=== PATIENT | female | born 1980 | race Caucasian/White ===

== ENCOUNTER 2017-05-23 08:30 | Outpatient (RCR) | payer OTHER, SELFPAY ==
--- NOTE | 2017-05-02 11:20 | HP.PTEVAL_ITS ---
Patient's Visit Information GERMAN ROBBINS is a 36 year old F referred to Physical Therapy by LUPILLO Govea with a diagnosis of Left Tarsal Tunnel. Date of Evaluation: 05/02/17 Physical Therapist: Lashae Fletcher - Visit Plan Frequency: 2x /Week Duration: 4 Weeks Plan: Progress to shoe as tolerated. Left Tarsal Tunnel Release 04/01/17. - Subjective Subjective: Left Tarsal Tunnel 04/01/[address] Dunham- Was having really bad heel pain- started out as plantar fascitits (boot, orthotics, injections). NWB for 1 week used axillary crutches then was TTWB for 2 weeks then put into a walking boot. If she is walking long distances she is still using her crutches. Actual heel hurts- started this morning- last 3 toes are still numb. Does walk at home on the carpet without her boot on. Heel pain started this morning which is a little different- feels a ball at the arch of her foot with a ball. Worst: 09/18 Agg: being up on it. Describes pain as burning- normally dull and achy. Eases: ice, getting off it. Once she gets off it takes about 60 min to go away. Best: 06/18. Sleep: not disturbed- does not sleep in her boot. 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 No injuries. No radiating pain. PMHx: anxiety, Meds: lyrica, mentonex. MRI/X-ray/EMG before surgery- no images since surgery. fully I at this time driving, dressing, bathing. - Objective Posture: FH,RS. Gait: antalgic- decreased stance on the left LE- does have CAM walker on- poor heel/toe pattern. Balance: WS but unable to SLS. HR/TR: able seated but not in full WB. Palpation: tender along medial tunnel behind malleolus. Incision: healing well- one tiny area where stitch looks to be pulling through, very senstive to touch and increased scar tissue. ROM: DF: 5 degrees from neutral PF: 40 degrees, Inv: 30 degrees, Ever: 20 degrees. Strength: 4/5 throughout available range - Goals Goal 1:: Patient will be I with HEP and progression Goal Time Frame: 4-6 Weeks Goal 2:: Patient will ambulate >300 feet with a normalized gait pattern and shoe. Goal Time Frame: 4-6 Weeks Goal 3:: Patient will SLS for 30 sec without LOB Goal Time Frame: 4-6 Weeks Goal 4:: Patient will demo full ROM of the ankle Goal Time Frame: 4-6 Weeks - Rehabilitation Potential Physical Therapy Diagnosis: Patient presents with hypomobility- she has decreased ROM, strength and muscular endurnace s/p surgery leading to abnormal gait and inability to perform ADL's Rehabilitation Potential: Good - Anticipated Interventions Patient/Client Instruction: Educate patient on: Benefits of Fitness Program For the Purpose of:: To improve ability to perform ADL's Therapeutic Exercise to Include: Strength training, Endurance training, Balance training, Agility training, Body mechanics, Postural training, Flexibilty training, Passive ROM, Active ROM, Dynamic Lumbar Stabilization For the Purpose of:: To improve muscle performance and motor function Manual Therapy Techniques to Include: Scar massage, Soft tissue mobilization For the Purpose of:: To decrease pain, To increase ROM TENS: Yes Cryotherapy (ice pack, ice massage): Yes Thermo therapy (hot pack): Yes For the Purpose of:: To decrease pain Thank you for the opportunity to evaluate your patient. For Medicare and Medicare HMO plans, please review the plan of care and approve it. It will need to be FAXED BACK to us at [phone] for Medicare purposes. Please let me know if there are questions or concerns regarding this plan of care. Physician Signature: Date:
--- NOTE | 2017-05-23 08:54 | HP.PTDCSUM_ITS ---
HP - PT D/C Summary It has been my pleasure to treat GERMAN ROBBINS under orders from Theresa Goyal, LUPILLO, for the diagnosis of Left Tarsal Tunnel for a total of 5 visit(s) . Discharge Date: Please see the following information for a summary of their discharge status. - Subjective Subjective: Patient reports that she is 80% better. She went to work on Tuesday and was not painful just sore. She is not having any pain anymore and is happy with progress. Sees the MD today. - Pain L medial ankle Pain Intensity (Out of 10): 3 - Overall Improvement % Improvement: 80 - Objective Objective/Function: Posture: good throughout. Gait: no deviation noted. Stairs : asc/desc 8 recip with no HR. HR/Tr: able without pain. ROM: WNL. Strength : 5/5. Balance: 20 sec then LOB - Goals Goal 1:: Patient will be I with HEP and progression Goal Progress: Goal Met Goal 2:: Patient will ambulate >300 feet with a normalized gait pattern and shoe. Goal Progress: Goal Met Goal 3:: Patient will SLS for 30 sec without LOB Goal Progress: Progressing Goal 4:: Patient will demo full ROM of the ankle Goal Progress: Goal Met - Plan Plan: Discharge to I HEP - D/C Information If there are questions or concerns regarding this patient's physical therapy, please feel free to call me at [phone]. Thank you for the referral of this patient. Sincerely, Lashae Fletcher
== END 2017-05-23 09:00 | disposition home or self-care (01) ==
LOC: PT 08:30
PROVIDERS: Family Provider Internal Medicine; PCP Internal Medicine; Visit Provider Podiatrist
DX: Z98.890 Other specified postprocedural states (principal)
CPT/HCPCS: 97110; 97140; 97161; 97530

== ENCOUNTER → 2017-11-18 10:16 | Outpatient (CLI) | payer OTHER, SELFPAY ==
--- NOTE | 2017-11-18 10:22 | RAD_ITS ---
STUDY: X-RAY - LEFT KNEE REASON FOR EXAM: Female, 37 years old. Pain TECHNIQUE: Four view(s) of the knee were obtained. COMPARISON: None. FINDINGS: The distal femur is unremarkable. 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 There is moderate narrowing of the medial femorotibial compartment. There is mild narrowing of the lateral femorotibial compartment. Normal patellofemoral articulation. There is no fullness above the patella. The soft tissue structures are unremarkable. RAD/Knee 4 or More Views IMPRESSION: There are mild to moderate degenerative changes in the left knee with a medial predominance. Electronically Signed: Elvi Howard MD at 0:24 EDT Tel Direct: [phone], Service support ,
--- NOTE | 2017-11-18 10:22 | RAD_ITS ---
STUDY: X-RAY - RIGHT KNEE REASON FOR EXAM: Female, 37 years old. Pain TECHNIQUE: Four view(s) of the knee were obtained. COMPARISON: None. FINDINGS: The distal femur is unremarkable. The proximal tibia is unremarkable. There is mild narrowing of the medial femorotibial compartment. Normal lateral femorotibial compartment. Normal patellofemoral articulation. There is no fullness above the patella. The soft tissue structures are unremarkable. RAD/Knee 4 or More Views IMPRESSION: There are mild degenerative changes in the medial compartment. Electronically Signed: Elvi Howard MD at 0:22 EDT Tel Direct: [phone], Service support ,
== END ==
PROVIDERS: Visit Provider Internal Medicine Rheumatology
DX: M06.4 Inflammatory polyarthropathy (principal); K58.2 Mixed irritable bowel syndrome; G56.03 Carpal tunnel syndrome, bilateral upper limbs
CPT/HCPCS: 73564

== ENCOUNTER 2018-06-02 05:32 | Day surgery (SDC) | payer OTHER, SELFPAY ==
[2018-05-19 09:52] VITALS: BMI 43.7
[2018-05-26 13:32] LABS: Absolute Lymphocyte Count 2.08 X10^3/ul (0.83-4.51); Basophil# 0.03 X10^3/uL; Basophil% 0.3 % (0-1); Eosinophil# 0.07 X10^3/uL; Eosinophils% 0.8 % (0-5); Hematocrit 41.4 % (37-47); Hemoglobin 13.4 g/dl (12.0-15.0); Lymphocyte # 2.08 X10^3/ul (4.0); Lymphocyte % 23.9 % (19-41); Mean Corp Hgb Conc 32.4 g/gl (32-36); Mean Corpuscular Hgb 27.5 pg (27.0-32.0); Mean Platelet Vol. 9.4 fl (6.2-12.0); Monocyte# 0.56 X10^3/uL; Monocyte% 6.4 % (0-10); Neutrophil # 5.95 X10^3/uL (2.7-7.7); Neutrophil % 68.5 % (47-70); Platelet Count 334 K/mm3 (150-450); RBC Distribution Width CV 13.9 % (11.6-14.6); RBC Distribution Width SD 42.2 fl (35.1-43.9); Red Blood Count 4.87 M/mm3 (4.2-5.4); White Blood Count 8.7 K/mm3 (4.4-11.0)
[2018-05-26 13:36] LABS: POSITIVE COUNT NO; POSITIVE DIFFERENTIAL NO; POSITIVE MORPHOLOGY NO
[2018-05-26 14:05] LABS: ALB/GLOB Ratio 0.9 RATIO (0.9-2.4); AST(SGOT) 23 U/L (15-37); Alanine Aminotransfer ALT/SGPT 42 U/L (13-56); Albumin, Serum 4.1 g/dL (3.2-5.0); Alkaline Phosphatase 134 U/L (45-117); Anion Gap 9 (5-15); BUN 15 mg/dL (7-18); BUN/Creat Ratio 18.2 RATIO (10-20); Calcium,Total 9.8 mg/dL (8.5-10.1); Chloride 104 mmol/L (98-107); Creatinine, Serum 0.82 mg/dL (0.55-1.02); EST Glomerular Filtration Rate 83 mL/min (>60); Est Glom Filt Rate - Afr Amer 100 mL/min (>60); Globulin 4.4 g/dL (2.2-4.2); Glucose 107 mg/dL (74-106); Potassium 3.9 mmol/L (3.5-5.1); Protein, Total 8.5 g/dL (6.4-8.2); Sodium Level 139 mmol/L (136-145)
[2018-06-02] VITALS (7 sets, daily range): BP systolic 98–138; BP diastolic 64–86; PULSE 71–81; RESP 15–16; TEMP 36.1–36.6; O2SAT 92–99; BMI 44.5
[2018-06-02] MEDS: Bupivacaine 0.5% PF 10 ML VIAL (07:40)
--- NOTE | 2018-06-02 09:38 | DCINST_ITS ---
Discharge Diet: No Restrictions Discharge Activity: Use Crutches Ice area for (Minutes): 15 - apply to back of knee only Weight Bearing Status: No weight bearing Keep extremity elevated above heart level: Right Leg Call your doctor if your incision/area has: Continuous Slow Oozing, Sudden Increased Bleeding, Increased Pain/ Swelling, Increased Redness, Foul Smelling Discharge, Swelling at the incision site Call your doctor if you observe: Fever of 101 or Higher, Numbness or Tingling, Calf discomfort, Uncontrolled pain Cleanse incision/area with: Keep Dressing Clean & Dry Allergies/Adverse Reactions: Allergies Sulfa (Sulfonamide Antibiotics) Allergy (Verified 05/26/18 11:30) Rash Medications to take at Discharge Sertraline HCl [Zoloft] 100 mg PO DAILY 04/07/14 nabumetone 750 mg tablet 750 mg PO BID 05/19/18 Acetaminophen [Tylenol] 650 mg PO PRN PRN 05/26/18 Primary Care Physician: Chelsy Maldonado MD [Primary Care Provider] - Test Results: Test results from this visit will be discussed in further detail at your follow- up appointment, if applicable. Please Follow Up With: Theresa Goyal DPM When: [facility]; call [phone] sooner if questions Proposed Discharge Date: 06/02/18
--- NOTE | 2018-06-02 09:57 | OP.PCM_ITS ---
Problem List (1) Tarsal tunnel syndrome, right lower limb Status: Chronic (2) Plantar fasciitis of right foot Status: Chronic (3) Right foot pain Status: Chronic Report of Operation Date of Procedure: 06/02/18 Pre-Operative Diagnosis: Right tarsal tunnel syndrome. Right plantar fasciitis chronic Post-Operative Diagnosis: Right tarsal tunnel syndrome. Right plantar fasciitis chronic Surgery/Procedure Performed:: Right tarsal tunnel external neurolysis including branches. Right open plantar fasciotomy Description of Surgical Findings:: Hemostasis: Anatomic dissection, no tourniquet utilized Materials: 2-0 and 3-0 Vicryl, 4-0 nylon Findings: Hemostasis controlled, tibial nerve with 3 main branches well mobilized after tarsal tunnel release including fibro-osseous tunnels. See detailed operation report The patient tolerated the procedure and anesthesia well. She was transported to the PACU vital signs stable vascular status intact to the right lower extremity. She will be discharged home upon continued stability in all of her postoperative orders were entered electronically. Type of Anesthesia:: General, Local - Preoperative: 1:1 mixture of 1% lidocaine plain 0.5% Marcaine plain administered in high tibial nerve block fashion, 14 cc Postoperative: 1-1 mixture of 1% lidocaine plain 0.5% Marcaine plain administered tibial nerve block and local infiltrative manner to right lower extremity at surgical sites, 14 cc Specimen's removed: None Estimated Blood Loss (mL): < 50 mL Description of Procedure: Indications: This 37-year-old female without significant past medical history continues to have right heel pain with associated parasthesias. This has been chronic in nature and the onset is over 1 year with progressive worsening. Clinically, she has irritation and palpation over the medial calcaneal nerve branch and to the medial plantar instep. Her x-rays are negative for spurs, cysts, or fractures. Her EMG studies were negative for radiculopathy and did not identify other specific abnormalities to the tibial nerve. She did have partial relief with a diagnostic nerve block to the tibial nerve and her clinical presentation is consistent with tarsal tunnel syndrome and plantar fasciitis. She has failed conservative care and elects to proceed with surgical intervention at this time. The preoperative indications, planned procedure, possible benefits, risks, and anticipated healing time management were discussed in detail with the patient. She understands and elects to proceed with surgery at this time. She understands that complications may involve but are not limited to the following: continued pain, swelling, scarring, need for revisional surgery, re-entrapment of the nerve, loss of sensation, loss of limb, function, life, allergic reaction, and or blood clot. Informed surgical consent and surgical limb were signed. I answered all her questions. Her preoperative history and physical was reviewed from her primary care physician, Dr. Maldonado, and clearance was provided. Her preoperative diagnostic data was also reviewed in detail. Procedure in detail: The patient was transported to the operating room via cart and placed on the operating room table in supine position. Final verification of patient, surgery, and limb designation was performed via the timeout procedure. A well- padded right thigh tourniquet was placed, however this was not utilized. General anesthesia was initiated by the anesthesia team. The right lower extremity was prepped and draped in the usual aseptic manner. A local anesthetic was administered dulce tibial nerve proximal to the anticipated surgical dissection site. Surgery proceeded as a following: Attention was first directed to the medial aspect of the right ankle in which a 5 cm linear incision was made approximately 1.5 cm posterior to the medial malleolus extending to the anterior fat pad of the heel through the skin. Blunt dissection was next performed down until the flexor retinaculum was identified. Care was taken to identify and protect all neurovascular bundles at this point and throughout the remainder of surgery. A small puncture was made through the flexor retinaculum and this was incised to release the entrapped neurovascular bundle. This release extended above the medial malleolus and further distal to where the nerve began to branch and additionally to the level of the abductor hallucis muscle belly. Vessel loupes were used to separate the nerve from the adjacent neurovascular bundle and any associated adhesions. No touch technique was utilized throughout the entire procedure to avoid further nerve irritation or injury. The tibial nerve was identified and additionally the medial calcaneal nerve branch, lateral plantar nerve branch, and medial plantar nerve branches were identified and freed from adherent adjacent soft tissue structures. It is noted that the septum in which medial and lateral plantar nerves were diving deep into the foot were freed and not entrapped in the site. The medial calcaneus nerve branch was entrapped and restricted while that was diving deep to the medial aspect of the calcaneus and correlates in alignment with her main clinical pain site. Therefore, the septum /fibrous tunnel was carefully loosened and incised resulting in a smooth gliding nerve caodaism. There were some varicosities on top of the medial and lateral plantar nerve branches and further at the fascial layer that met the abductor hallucis muscle belly were noted, and these were moderate in nature. Several of the tortuous branches were ligated with electrocauterization. The overlying vessels were carefully freed from the underlying nerve branches and nonrestrictive nerve motion was noted upon passive range of motion. There was no additional soft tissue mass or proximal entrapment identified. Care was taken to release the fibrous brands to each branch. The epineurium appeared to be intact under loupe magnification visualization. Saline irrigation was performed. One mL of dexamethasone was used to bathe the nerve and its branches to reduce local inflammation. Next, attention was directed approximately 1.5 cm distal to the plantar w eightbearing surface of the medial heel. A horizontal 1.5 cm linear incision was made through the skin remaining parallel to the resting skin tension lines. Next, blunt dissection was performed through the adipose tissue and the plantar fascial band was directly visualized. A 15 blade was utilized to release the plantar fascia band including the medial aspect and the entire central band. The windlass mechanism was re-created and decreased tension was visualized and palpated. Additional tenotomy scissor was used to ensure the medial slips extending into the abductor hallucis muscle belly sheath were thoroughly released as well. Minimal electrocauterization was utilized to control hemostasis for a superficial vein in this region. The wound was irrigated with normal saline. No pulsatile bleeding was noted and capillary fill time was brisk to all digits of the surgical limb. Deep closure was performed with 2-0 and 3-0 Vicryl, and the flexor retinaculum was not repaired. The skin incision sites were reapproximated with 4-0 nylon utilizing simple and horizontal mattress techniques. A postoperative injection was administered as noted above. The postoperative dressing consisting of Adaptic soaked in Betadine, gauze, abdominal pad, and Kerlix were applied. Additionally, a well-padded posterior mold was applied with the foot in a rectus position for further protection. After procedure: The patient tolerated the procedure and anesthesia well. She was transported to the PACU vital signs stable and vascular status intact to the right lower extremity. She was advised to keep her dressing, clean, dry and intact with the splint in place until follow up next week. She was advised to ice and elevate for pain and inflammation management. She was provided with a postoperative pain medication prescription (percocet), and advised on safe and proper use. She was advised to remain nonweightbearing and use crutches or knee roller for assistance. She was advised to call sooner if she has any questions or concerns. She will be progressed to an early mobilization home program to prevent re entrapment or additional scarring. The anticipated healing time and success ra te of this procedure were discussed in full in the preoperative setting. She will also be started on a Lyrica and Metanx program to facilitate nerve healing and relief as part of her post operative treatment course. All orders were entered electronically. She will be discharged home today. Theresa Goyal DPM, [facility] [phone] - Complications None - Admit VTE Documentation VTE Present on Admission: No VTE Mechan Device Prophylaxis: SCD's VTE Pharm Prophylaxis ordered?: No Reason prophylaxis not ordered:: Treatment Not Indicated
[2018-06-02] MEDS: HYDROcodone Bitartrate/Apap 5/325 Tablet PO (10:34)
== END 2018-06-02 12:20 | disposition home or self-care (01) ==
LOC: SDC 05:32 → AC 05:32
PROVIDERS: Family Provider Internal Medicine; PCP Internal Medicine; Referring Provider Podiatrist; Visit Provider Podiatrist
PROC: (CPT 28035; principal; 2018-06-02 07:15)
PROC: (CPT 28008; 2018-06-02 07:15)
DX: G57.51 Tarsal tunnel syndrome, right lower limb (principal); M72.2 Plantar fascial fibromatosis; F41.9 Anxiety disorder, unspecified; F32.9 Major depressive disorder, single episode, unspecified
CPT/HCPCS: 28008; 28035; 36415; 80053; 85025; 93005; J7120; J2405

== ENCOUNTER 2018-07-05 08:54 | Outpatient (RCR) | payer OTHER, SELFPAY ==
[2018-06-02 06:04] VITALS: BMI 44.5
--- NOTE | 2018-07-05 09:32 | HP.PTEVAL_ITS ---
Patient's Visit Information GERMAN ROBBINS is a 37 year old F referred to Physical Therapy by Theresa Goyal DPM with a diagnosis of Right Tarsal Tunnel and Plantarfasciotomy. Date of Evaluation: 07/05/18 Physical Therapist: Lashae Fletcher DPT - Visit Plan Frequency: 1x/Week Duration: 1 Week Plan: Educated today on shoes, progression to shoe, scar management and HEP. Patient to do independent HEP- call or email with questions or concerns. Will keep chart open for 4 weeks- if no questions or concerns will d/c at this time. - Subjective Findings: 06/02/[address] Goyal right tarsal tunnel and plantar fasciotomy. Patient reports this one seems easier than the left she had done. She has transitioned to a shoe for about a total of 2 hours. Worst: 3/10 Agg: being on it. Eases: sitting Best: 0/10 most of the time. Feels like gravel on the bottom of the foot. No other pains. Does have small amount of hip pain but nothing serious. Slight numbness to the heel on the bottom of the foot. 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 Worked out did a light impact video yesterday- in shoes. Fully I prior to surgery and hopes to go back. Is currently driving. No pain meds at this time. Sleep: not disturbed. Does have orthotics but she can't wear them. Always wears [employer] shoes and inserts from the office. PMhx/meds: list scanned in chart. - Objective Posture: FH, RS- can correct with verbal cues. Gait: CAM walker- decreased stance on the right LE with poor heel/toe. Without CAM walker- patient ambulates with increased supination and decreased heel strike. Heel Raise: full ROM but increased flare in of heel- given VC's can perform correctly but feels different. Toe Raise: full ROM but reports discomfort on the heel. Palpation: tender along incision. Observation: increased scar tissue along incision. SLS: Full WS but unable to SLS. ROM: DF: 0 degrees, PF:60 degrees, Inv: 40 degrees, Ever: 20 degrees. Gastroc: severe restriction, HS: moderate restriction. Strength: 4+/5 throughout ankle and knee - Goals Goal 1:: Patient will be I with HEP and progression Goal Time Frame: 4-6 Weeks - Rehabilitation Potential Physical Therapy Diagnosis: Patient presents with hypomobility- she has decreased ROM and muscular endurance leading to abnormal gait and decreased participation with ADL's. Rehabilitation Potential: Excellent - Anticipated Interventions Thank you for the opportunity to evaluate your patient. For Medicare and Medicare HMO plans, please review the plan of care and approve it. It will need to be FAXED BACK to us at [phone] for Medicare purposes. For Medicare only, by signing this I certify the plan of care. Please let me know if there are questions or concerns regarding this plan of care. Physician Si gnature: Date:
--- NOTE | 2018-08-10 10:42 | HP.PT.NRP ---
HP - Discharge Summary (1) - Patient Information GERMAN ROBBINS was seen in my office for initial evaluation on 07/05/18. The following Plan of Care was established for this patient: Initial Frequency: 1x/Week Initial Duration: 1 Week This patient was last seen in our office . Pertinent comments regarding their Physical therapy will appear below: Patient has not attended physical therapy is over 30 days- appropriate to be d/c from PT and return to MD as needed for further evaluation. At this point I will be discontinuing this patient from physical therapy. I would be happy to see this patient again in the future if found appropriate by the physician. Thank you! RUTHIE MoonT
== END 2018-07-05 19:00 | disposition home or self-care (01) ==
LOC: PT 08:54
PROVIDERS: Family Provider Internal Medicine; PCP Internal Medicine; Referring Provider Podiatrist; Visit Provider Podiatrist
DX: Z98.890 Other specified postprocedural states (principal)
CPT/HCPCS: 97161

== ENCOUNTER → 2020-06-26 13:38 | Outpatient (CLI) | payer OTHER, SELFPAY ==
[2018-06-02 06:04] VITALS: BMI 44.5
--- NOTE | 2020-06-26 13:41 | CT_ITS ---
STUDY: CT FACIAL BONES WITHOUT CONTRAST REASON FOR EXAM: Female, 39 years old. SINUSITIS RADIATION DOSAGE (If Supplied By Facility): CTDIvol = ( 28.14 ) mGy, DLP = ( 714.53 ) mGycm TECHNIQUE: The patient was scanned in a multi detector CT scanner. Sagittal and coronal images were reconstructed. Individualized dose optimization techniques were used for this CT. COMPARISON: None. FINDINGS: Normal soft tissue structures. Normal orbital hernandez and orbital contents. Normal nasal bones and anterior nasal spine. Normal facial bones. There is no demonstrated fracture. There is hypertrophy of the inferior turbinate in the left nasal fossa. Nasal septal deviation towards the left side of the midline. CT/Sinus/Facial Bone IMPRESSION: Nasal septal deviation towards the left side of the midline with hypertrophy of the left inferior turbinate. Electronically Signed: Luis Connelly MD at 15:22 EDT , Service support ,
== END ==
PROVIDERS: PCP Internal Medicine; Referring Provider Otolaryngology; Visit Provider Otolaryngology
DX: J32.8 Other chronic sinusitis (principal)
CPT/HCPCS: 70486

== ENCOUNTER 2021-02-16 02:04 | Observation (INO) | payer OTHER, SELFPAY ==
[2021-02-16] VITALS (8 sets, daily range): BP systolic 99–140; BP diastolic 44–83; PULSE 60–93; RESP 16–18; TEMP 36.1–36.8; O2SAT 96–100; BMI 27.1; BMI 27.8
[2021-02-16 02:58] LABS: Absolute Lymphocyte Count 1.78 X10^3/uL (0.83-4.51); Basophil# 0.03 X10^3/uL; Basophil% 0.4 % (0-1); Eosinophil# 0.16 X10^3/uL; Eosinophils% 2.1 % (0-5); Hematocrit 39.5 % (37-47); Hemoglobin 12.8 g/dL (12.0-15.0); Lymphocyte # 1.78 X10^3/ul (0.83-4.51); Lymphocyte % 23.1 % (19-41); Mean Corp Hgb Conc 32.4 g/dL (32-36); Mean Corpuscular Hgb 28.3 pg (27.0-32.0); Mean Corpuscular Volume 87.4 fL (81-99); Mean Platelet Vol. 9.7 fl (6.2-12.0); Monocyte# 0.73 X10^3/uL; Monocyte% 9.5 % (0-10); NRBC Flagged by Analyzer 0 % (0-5); Neutrophil # 4.98 X10^3/uL (2.7-7.7); Neutrophil % 64.8 % (47-70); Platelet Count 268 K/mm3 (150-450); RBC Distribution Width SD 41.6 fl (35.1-43.9); Red Blood Count 4.52 M/mm3 (4.2-5.4); White Blood Count 7.7 K/mm3 (4.4-11.0)
[2021-02-16] MEDS: 0.9% Normal Saline 1,000 ML 1000 ML IV (03:03)
[2021-02-16] MEDS: Morphine 4 MG/ML Syringe IV (03:03)
[2021-02-16] MEDS: Mag Hydrox/Al Hydrox/Simeth 30 ML UDC PO (03:04)
[2021-02-16] MEDS: Famotidine 200 MG/20 ML MDV 20 MG in 0.9% Normal Saline (Pres. free 8 ML 300 MG IV (03:04)
[2021-02-16] MEDS: Ondansetron 4 MG/2 ML Vial IV ×2 (03:04→10:05)
[2021-02-16 03:13] LABS: AST(SGOT) 36 U/L (15-37); Alanine Aminotransfer ALT/SGPT 39 U/L (13-56); Albumin, Serum 3.5 g/dL (3.2-5.0); Alkaline Phosphatase 91 U/L (45-117); Anion Gap 5 (5-15); BUN 15 mg/dL (7-18); BUN/Creat Ratio 21.4 RATIO (10-20); Bilirubin, Direct 0.12 mg/dL (0.00-0.30); Calcium,Total 8.8 mg/dL (8.5-10.1); Chloride 107 mmol/L (98-107); EST Glomerular Filtration Rate 99 mL/min (>60); Est Glom Filt Rate - Afr Amer 119 mL/min (>60); Estimated Creatinine Clearance 104.93 ml/min; Globulin 3.8 g/dL (2.2-4.2); Glucose 97 mg/dL (74-106); Lipase 145 U/L (73-393); Potassium 3.9 mmol/L (3.5-5.1); Protein, Total 7.3 g/dL (6.4-8.2); Sodium Level 139 mmol/L (136-145)
--- NOTE | 2021-02-16 03:29 | CT_ITS ---
STUDY: CT ABDOMEN AND PELVIS WITH CONTRAST REASON FOR EXAM: Female, 40 years old. upper abd pain, hx of gastric bypass -- IV PO Contrast RADIATION DOSAGE (If Supplied By Facility): CTDIvol = ( 13.35 ) mGy, DLP = ( 930.46 ) mGycm TECHNIQUE: Transaxial images were obtained from the dome of the diaphragm to the symphysis pubis without oral contrast. Oral and amp; IV Gastrografin and amp; 100mL Isovue-300 was administered. Sagittal and coronal images were reconstructed. Individualized dose optimization techniques were used for this CT. COMPARISON: None. FINDINGS: The visualized lung bases are unremarkable. The visualized portions of the heart are within normal limits. Normal liver. There are surgical clips in the gallbladder fossa consistent with a prior cholecystectomy. Normal spleen. Normal pancreas. Normal bilateral adrenal glands. 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 Right kidney stone measures 5 mm without hydronephrosis. Gastric bypass without evidence of obstruction. Normal small intestine. Normal colon. The appendix is visualized and appears normal. Normal abdominal aorta. Normal inferior vena cava. Normal retroperitoneum. Normal urinary bladder. Normal abdominal wall. Normal osseous structures. CT/Abdomen/Pelvis WITH Contrast IMPRESSION: Enlargement of the renal pelvis bilaterally suggesting bilateral extrarenal pelvis. Right kidney stone measures 5 mm without hydronephrosis. Electronically Signed: Felicia Sotelo MD at 6:19 EST Tel , Service support ,
--- NOTE | 2021-02-16 03:29 | ED.VIS.GI ---
HPI HPI - GI History of Present Illness Chief Complaint: Abd Pain Informant: patient Narrative Narrative: Patient is a 40-year-old female presenting with abdominal pain. Patient states that start about an hour after eating lunch. She notes she ate fried chicken strips. She then developed pain in her right upper quadrant and epigastric region. She states is been significantly worse over the past 4 hours and she describes as a 10 out of 10. She did severe. She has associated nausea but no vomiting. She knows she has not had a bowel movement in 2 days but has been passing gas. Denies any fever or chills. Did try taking Pepto-Bismol with no relief of her symptoms. Patient has had prior Dexter-en-Y gastric bypass, cholecystectomy and a recent hysterectomy in November. She notes she did recently have Covid 19 infection as well as sepsis from UTI after her hysterectomy. Her surgeries have been through [facility]. She denies any urinary symptoms. [facility] Medical History (Updated 02/16/21 @ 08:[address] Haylee Land DO) Hydronephrosis due to ureteral stricture Home Medications sertraline 100 mg PO DAILY 04/07/14 [History Last Taken 10/15/14 21:00] multivitamin 1 tab PO DAILY 02/16/21 [History Last Taken Unknown] Allergy/AdvReac Type Severity Reaction Status Date / Time Sulfa (Sulfonamide Allergy Rash Verified 02/16/21 02:08 Antibiotics) Family History Mother Diabetes Epilepsy Thyroid disorder Father Diabetes Thyroid disorder Alcoholism Celiac disease Early onset Alzheimer's dementia Surgical History H/O dilation and curettage History of cholecystectomy History of tubal ligation Social History Smoking Status: Never smoker second hand exposure: No alcohol intake: never what type of physical activity do you participate in: none ROS ROS ED Constitutional Constitutional ED: Denies chills or fever(s) ENT ENT ED: Denies rhinorrhea or sore throat Cardiovascular Cardiovascular: Denies chest pain Respiratory/Chest Respiratory/Chest: Denies cough or dyspnea Gastrointestinal Gastrointestinal: Reports abdominal pain and nausea; Denies constipation, diarrhea or vomiting Genitourinary Genitourinary ED: Denies dysuria or hematuria Musculoskeletal Musculoskeletal: Denies arthralgias or myalgias Integumentary Denies rash Neurologic Neurologic: Denies headache(s) or weakness EXAM Physical Exam Const Vital Signs: 02/16/21 02:05 02/16/21 04:43 02/16/21 06:00 Temperature 97 F L Temperature Source Temporal Pulse Rate 73 79 93 Respiratory Rate 16 16 18 Blood Pressure 140/83 H 115/67 99/56 L Blood Pressure Mean 102 83 70 Pulse Ox 100 97 99 Oxygen Delivery Method Room Air 02/16/21 08:00 Temperature Temperature Source Pulse Rate 91 Respiratory Rate 16 Blood Pressure 110/44 L Blood Pressure Mean 66 Pulse Ox 96 Oxygen Delivery Method Room Air Positive well nourished and well developed General Appearance ED: well developed HEENT normocephalic and atraumatic Eyes PERRL and EOMs intact bilaterally Neck supple Resp normal respiratory effort and clear to auscultation bilaterally Cardio regular rate, regular rhythm and no murmurs GI Inspection: Negative for abdominal distention Auscultation: hyperactive bowel sounds Palpation: soft and tender epigastric and RUQ; Negative for guarding, rigid or rebound tenderness present Back/Spine no CVA tenderness Neuro moves all extremities Sensorium / Orientation: alert Motor Exam: Negative for general weakness Psych mental status grossly normal and thought process normal Skin Lesions: no lesions Rashes: no rashes MDM MDM MDM Narrative Medical decision making narrative: Patient evaluated for right upper quadrant/epigastric abdominal pain. She has associated nausea but no vomiting. She does feel like she is been slightly constipated but has been passing gas. She has no peritoneal signs on exam. Patient is to given GI cocktail, Pepcid and morphine with no improvement of her pain. She is then redosed with 0.5 mg of IV Dilaudid. She does have temporary improvement of her pain but then it returns. Given her amount of pain I did obtain a CT of the abdomen pelvis. No acute processes seen. She has shown to have a 5 cm nonobstructing kidney stone on the right. Patient states she is aware of that and also knows of her hydronephrosis on the left. Spoke with urology on-call, Dr. Miller, who states that she does not think either of these should be causing her pain. I do highly suspect that she could have some type of gastritis or peptic ulcer disease is causing her pain. I do not suspect any retained stone/choledocholithiasis especially she has a normal lipase, bilirubin, alkaline phosphatase and AST/ALT. Her white blood cell count is normal and have a low suspicion for any acute surgical or infectious process. Patient would like to be admitted for further pain control and evaluation of her pain. I spoke with GI on-call, Dr. Amezquita, who is agreeable to this. Patient is admitted to the medicine service. Lab Data Attestation: I reviewed the patient's lab results. Labs: Laboratory Results - last 24 hr 02/16/21 02/16/21 02/16/21 02:15 02:15 04:40 WBC 7.7 RBC 4.52 Hgb 12.8 Hct 39.5 MCV 87.4 MCH 28.3 MCHC 32.4 RDW Std Deviation 41.6 RDW Coeff of Alyssia 13.0 Plt Count 268 MPV 9.7 Immature Gran % (Auto) 0.100 Neut % (Auto) 64.8 Lymph % (Auto) 23.1 [place] % (Auto) 9.5 Eos % (Auto) 2.1 Baso % (Auto) 0.4 Absolute Neuts (auto) 5.0 Absolute Lymphs (auto) 1.78 Nucleated RBC % 0 Sodium 139 Potassium 3.9 Chloride 107 Carbon Dioxide 27.0 Anion Gap 5 BUN 15 Creatinine 0.70 Estim Creat Clear Calc 104.93 Est GFR (MDRD) Af Amer 119 Est GFR (MDRD) Non-Af 99 BUN/Creatinine Ratio 21.4 H Glucose 97 Calcium 8.8 Total Bilirubin 0.30 Direct Bilirubin 0.12 AST 36 ALT 39 Alkaline Phosphatase 91 Total Protein 7.3 Albumin 3.5 Globulin 3.8 Lipase 145 Urine Color Yellow Urine Clarity Clear Urine pH 7.0 Ur Specific [place] 1.010 Urine Protein Negative Urine Glucose (UA) Normal Urine Ketones Negative Urine Occult Blood Negative Urine Nitrite Negative Urine Bilirubin Negative Urine Urobilinogen Normal Ur Leukocyte Esterase 100 H Urine RBC 0 SEEN Urine WBC 0-5 SEEN Ur Squamous Epith Cells 0-5 SEEN Urine Bacteria 2+ Urine Mucus 0 SEEN Radiography Diagnostic Testing: Clinical Impression(s) from Imaging Studies Abdomen/Pelvis CT 02/16/21 03:29 IMPRESSION: Enlargement of the renal pelvis bilaterally suggesting bilateral extrarenal pelvis. Right kidney stone measures 5 mm without hydronephrosis. Electronically Signed: Felicia Sotelo MD at 6:19 EST Tel , Service support , Discharge Plan Triage Chief Complaint: Abd Pain ED Provider: Haylee Land Dx/Rx/DC Orders Clinical Impression: Intractable epigastric abdominal pain, Nausea Primary Care Provider: Dread Lira Disposition Disposition: Acute Care Hospital [facility]
[2021-02-16] MEDS: HYDROmorphone 0.5 MG/0.5 ML SYRINGE IV ×2 (03:56→06:11)
[2021-02-16 04:46] LABS: Mucous, Urine 0 SEEN /hpf (<or=2+); Red Blood Cells-Urine 0 SEEN /hpf (0-5)
[2021-02-16 04:47] LABS: Color, Urine Yellow (Yellow); Glucose, Dipstick Normal (Normal); Ketone-Dipstick Negative (Negative); Leukocyte Esterase-Dipstick 100 /ul (Negative); Nitrite-Dipstick Negative (Negative); Occult Blood-Urine Negative /ul (Negative); Protein-Dipstick Negative (Negative); Urine Bilirubin Dipstick Negative (Negative); Urine Clarity Clear (Clear); Urine Urobilinogen Normal (Normal)
[2021-02-16 05:02] LABS: White Blood Cells 0-5 SEEN /hpf (0-5)
[2021-02-16 05:03] LABS: Bacteria 2+ /hpf (None Seen); Squamous Epithelial Cells - UA 0-5 SEEN /hpf (5-10)
--- NOTE | 2021-02-16 06:54 | NURSING ---
dr valadez paged
--- NOTE | 2021-02-16 07:14 | NURSING ---
PAGED DR FLOWERS
--- NOTE | 2021-02-16 07:49 | NURSING ---
DR LAO FOR DR LIGHT
--- NOTE | 2021-02-16 07:55 | HP.PCM.HOS_ITS ---
HPI - General General Date of Admission: 02/16/21 HPI Narrative GERMAN ROBBINS, is a 40 F with history of morbid obesity status post Dexter-en-Y gastric bypass about 2 to 3 years ago without severe complications came to ER with upper abdominal pain that started about 1 2 PM yesterday while patient was at work. This progressed to severe, sharp, stabbing in nature with burping and bloating sensation. Patient states he had history of ulcer prior to gastric bypass surgery which resolved after Carafate treatment. She denies history of H. pylori. Patient denies vomiting, alteration in bowel habit, hematemesis, melena or hematochezia. She also has recent history of vaginal hysterectomy in November 2020 and had postoperative kidney infection/pyelonephritis probably due to Reyes catheter. She has history of cholecystectomy and ureteral stent. In ED, she was given GI cocktail. Abdomen pelvis CT in the ER shows enlargement of bilateral renal pelvis suggesting bilateral extrarenal pelvis. Right kidney stone 5 mm without hydronephrosis. [facility] Medical History Hydronephrosis due to ureteral stricture Home Medications sertraline 100 mg PO DAILY 04/07/14 [History Last Taken 10/15/14 21:00] multivitamin 1 tab PO DAILY 02/16/21 [History Last Taken Unknown] Allergy/AdvReac Type Severity Reaction Status Date / Time Sulfa (Sulfonamide Allergy Rash Verified 02/16/21 02:08 Antibiotics) Family History Mother Diabetes Epilepsy Thyroid disorder Father Diabetes Thyroid disorder Alcoholism Celiac disease Early onset Alzheimer's dementia Surgical History H/O dilation and curettage History of cholecystectomy History of tubal ligation Social History Smoking Status: Never smoker second hand exposure: No alcohol intake: never what type of physical activity do you participate in: none ROS ROS Narrative Constitutional: Reports fatigue and weakness HEENT: Reports systems reviewed and no addt'l complaints, except as documented Respiratory/Chest: Denies chest pain, shortness of breath at rest or with exertion Gastrointestinal: As mentioned in HPI Genitourinary: Denies burning urination or new urinary tract symptoms. Recent pyelonephritis/UTI Musculoskeletal: Denies joint pain and limited range of motion Neurologic: Denies seizure-like activity skin: No ulcer. No rash Endocrinology: Reports systems reviewed and no addt'l complaints, except as documented Hematologic/Lymphatic: Reports systems reviewed and no addt'l complaints, except as documented Rest 12 ROS are negative except as mentioned in HPI Vital Signs Vital Signs Vital Signs: 02/16/21 02:05 02/16/21 04:43 02/16/21 06:00 Temperature 97 F L Temperature Source Temporal Pulse Rate 73 79 93 Respiratory Rate 16 16 18 Blood Pressure 140/83 H 115/67 99/56 L Blood Pressure Mean 102 83 70 Pulse Ox 100 97 99 Oxygen Delivery Method Room Air Weight Weight: 173 lb Body Mass Index (BMI) 27.1 Physical Exam Narrative General: Alert, Oriented x3, Cooperative HEENT: Atraumatic, PERRLA, EOMI, Normocephalic Oral: No Gingival or Mucosal Lesions/ Ulcerations Neck: Supple, No JVD, Negative Carotid Bruits Lungs: Air entry equal in bilateral lung bases. No crepitation/rhonchi Cardiovascular: Regular rate, Regular Rhythm, Normal S1, Normal S2, No murmurs Abdomen: Mild tenderness in epigastrium. Bowel Sounds Present, Soft, Non- Distended : No renal angle tenderness. No suprapubic tenderness. Extremities: No edema, Capillary Refill Less than 3 Seconds Skin: No rashes, No breakdown Musculoskeletal: No Tenderness to Palpation of Joints or Extremities Neurological: Cranial nerves II-XII grossly intact, DTR 2+/4 and Symmetrical, Neuro grossly intact Psych/Mental Status: Normal Affect, Appropriate. Results Lab / Micro Data Result Diagrams: 02/16/21 02:15 02/16/21 02:15 Labs: Laboratory Results - last 24 hr 02/16/21 02:15: WBC 7.7, RBC 4.52, Hgb 12.8, Hct 39.5, MCV 87.4, MCH 28.3, MCHC 32.4, RDW Std Deviation 41.6, RDW Coeff of Alyssia 13.0, Plt Count 268, MPV 9.7, Immature Gran % (Auto) 0.100, Neut % (Auto) 64.8, Lymph % (Auto) 23.1, [place] % (Auto) 9.5, Eos % (Auto) 2.1, Baso % (Auto) 0.4, Absolute Neuts (auto) 5.0, Absolute Lymphs (auto) 1.78, Nucleated RBC % 0 02/16/21 02:15: Sodium 139, Potassium 3.9, Chloride 107, Carbon Dioxide 27.0, Anion Gap 5, BUN 15, Creatinine 0.70, Estim Creat Clear Calc 104.93, Est GFR (MDRD) Af Amer 119, Est GFR (MDRD) Non-Af 99, BUN/Creatinine Ratio 21.4 H, Glucose 97, Calcium 8.8, Total Bilirubin 0.30, Direct Bilirubin 0.12, AST 36, ALT 39, Alkaline Phosphatase 91, Total Protein 7.3, Albumin 3.5, Globulin 3.8, Lipase 145 02/16/21 04:40: Urine Color Yellow, Urine Clarity Clear, Urine pH 7.0, Ur Specific [place] 1.010, Urine Protein Negative, Urine Glucose (UA) Normal, Urine Ketones Negative, Urine Occult Blood Negative, Urine Nitrite Negative, Urine Bilirubin Negative, Urine Urobilinogen Normal, Ur Leukocyte Esterase 100 H, Urine RBC 0 SEEN, Urine WBC 0-5 SEEN, Ur Squamous Epith Cells 0-5 SEEN, Urine Bacteria 2+, Urine Mucus 0 SEEN Radiology Impression Abdomen/Pelvis CT 02/16/21 03:29 IMPRESSION: Enlargement of the renal pelvis bilaterally suggesting bilateral extrarenal pelvis. Right kidney stone measures 5 mm without hydronephrosis. Electronically Signed: Felicia Sotelo MD at 6:19 EST Tel , Service support , Assessment & Plan Assessment/Plan (1) Intractable epigastric abdominal pain: PLAN: 1. Intractable upper abdominal pain probably gastric/anastomotic/marginal ulcer: Patient is being admitted to [facility]. IV PPI every 12 hourly. Keep the n.p.o. for EGD. GI Dr. Amezquita has been consulted from ER physician. IV fluid while n.p.o. 2. Recent pyelonephritis: Currently she denies burning micturition. UA is negative for pyuria. She also had recent Covid infection. Patient has negative COVID-19 rapid antigen. 3. 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 Recent vaginal hysterectomy and repair of prolapse in November 2020. Prior cholecystectomy. Currently she does not have any complain 4. Anxiety and depression: On Zoloft. VTE prophylaxis: Low to moderate risk risk. BMI is 27.1 kg per square. Bilateral SCDs patient is on observational status but if hospital stay gets prolonged we will put pharmacological prophylaxis. Charges/Coding Visit Charges OBSV E&M: 10648 Initial observation care L3
--- NOTE | 2021-02-16 08:13 | NURSING ---
MEDS SURG TASHIA OBS ABD PAIN, INTRACTABLE
[2021-02-16 09:02] LABS: Magnesium 2.1 mg/dL (1.6-2.6); Phosphorus 3.5 mg/dL (2.5-4.9)
[2021-02-16] MEDS: 0.9% Saline Lock 10 ML Syringe IV ×5 (09:22→22:49)
[2021-02-16] MEDS: 0.9% Normal Saline 1,000 ML 100 ML IV ×2 (09:22→20:00)
[2021-02-16] MEDS: Morphine 2 MG/ML Syringe IV ×5 (10:05→22:49)
--- NOTE | 2021-02-16 18:36 | EX.PCM.CON.G ---
HPI Consult Data Date of Consult: 02/16/21 HPI Narrative HPI Narrative: 40 yo woman presenting from home with worsening abdominal pain after eating dinner. She says she does get some abdominal pain on occasion associated with overeating. However that usually stops after she stops eating. She did have a similar pain in the midepigastric area that is at was secondary to pancreatitis. normotensive but tachycardic. She was afebrile. When she came into the ED for evaluation she was Biochemical analysis did not show any signs of pancreatitis or hepatitis. She did have a mildly elevated BUN/creatinine ratio consistent with some mild dehydration. She got a CT scan abdomen pelvis that did not show any abnormalities. Prior to her getting a gastric bypass she did have a history of gastric ulcers but they were secondary to NSAIDs. That was treated with PPI therapy and Carafate therapy and it resolved enough for her to have surgery. She had surgery 2 years ago and has not had any complications since. Her normal bowel pattern is every other day. She does not have any abdominal pain and does not have to take any laxatives in order to go to the bathroom. [facility] Medical History (Updated 02/16/21 @ 18:[address] Bryan Amezquita DO) Anxiety Hydronephrosis due to ureteral stricture Home Medications sertraline 100 mg PO DAILY 04/07/14 [History Last Taken 02/15/21 19:00] multivitamin 1 tab PO DAILY 02/16/21 [History Last Taken 02/15/21 19:00] Allergy/AdvReac Type Severity Reaction Status Date / Time Sulfa (Sulfonamide Allergy Rash Verified 02/16/21 02:08 Antibiotics) Family History Mother Diabetes Epilepsy Thyroid disorder Father Diabetes Thyroid disorder Alcoholism Celiac disease Early onset Alzheimer's dementia Surgical History (Updated 02/16/21 @ 09:03 by Dee Schilling) Gastric bypass status for obesity H/O dilation and curettage History of cholecystectomy History of hysterectomy History of tubal ligation Social History Smoking Status: Never smoker second hand exposure: No alcohol intake: never what type of physical activity do you participate in: none ROS Review of Systems ROS Unobtainable: other Constitutional Constitutional: Denies fatigue, fever(s), poor appetite, weight gain or weight loss ENT HEENT: Denies mouth lesions Cardiovascular Cardiovascular: Denies abdominal bloating, abdominal edema or abdominal pain Respiratory/Chest Respiratory/Chest: Denies change in mental status, change in phlegm color, chest congestion or chest tightness Gastrointestinal Gastrointestinal: Denies belching, bloating, change in bowel habits, change in stool character, chewing difficulty, coffee ground emesis, constipation, cramping, diarrhea, dyspepsia, dysphagia, early satiety, excessive flatus, fecal incontinence, heartburn, hematemesis, hematochezia, hemorrhoids, loose stools, melena, nausea, odynophagia, rectal bleeding, tenesmus, vomiting or weight changes Genitourinary Genitourinary: Denies abdominal discomfort, burning urination or itching Musculoskeletal Musculoskeletal: Reports as per HPI; Denies muscle weakness or myalgias Integumentary Integumentary: Denies jaundice Neurologic Neurologic: Denies lack of coordination or weakness Psychiatric Psychiatric: Denies confusion, depression, memory loss, mood swings, paranoia or suicidal ideation Endocrine Endocrinology: Denies systems reviewed and no addt'l complaints, except as documented Hematologic/Lymphatic Hematologic/Lymphatic: Denies anemia, easy bleeding, easy bruising or lymphadenopathy Allergic/Immunologic Allergic/Immunologic: Denies systems reviewed and no addt'l complaints, except as documented Physical Exam Const alert General Appearance: cooperative Orientation / Consciousness: oriented to person HEENT hearing grossly normal bilaterally Head and Scalp: normal to inspection Face and Sinus: face symmetric Nose: external nose normal Mouth: oral and palatal mucosa normal Eyes conjunctivae normal General Eye: normal appearance of both eyes Neck full ROM General: normal visual inspection Lymph Lymphatic: no lymphadenopathy noted Chest inspection of chest normal and palpation of chest normal Chest: symmetrical chest wall rise Resp normal respiratory effort Effort and Inspection: able to speak in complete sentences Cardio regular rate GI non-distended Percussion: normal to percussion Rectal Exam: deferred Neuro Speech: speech normal Gait (Neuro): normal gait Lab / Micro Data Result Diagrams: 02/16/21 02:15 02/16/21 02:15 Labs: Laboratory Results - last 24 hr 02/16/21 02:15: WBC 7.7, RBC 4.52, Hgb 12.8, Hct 39.5, MCV 87.4, MCH 28.3, MCHC 32.4, RDW Std Deviation 41.6, RDW Coeff of Alyssia 13.0, Plt Count 268, MPV 9.7, Immature Gran % (Auto) 0.100, Neut % (Auto) 64.8, Lymph % (Auto) 23.1, [place] % (Auto) 9.5, Eos % (Auto) 2.1, Baso % (Auto) 0.4, Absolute Neuts (auto) 5.0, Absolute Lymphs (auto) 1.78, Nucleated RBC % 0 02/16/21 02:15: Sodium 139, Potassium 3.9, Chloride 107, Carbon Dioxide 27.0, Anion Gap 5, BUN 15, Creatinine 0.70, Estim Creat Clear Calc 104.93, Est GFR (MDRD) Af Amer 119, Est GFR (MDRD) Non-Af 99, BUN/Creatinine Ratio 21.4 H, Glucose 97, Calcium 8.8, Total Bilirubin 0.30, Direct Bilirubin 0.12, AST 36, ALT 39, Alkaline Phosphatase 91, Total Protein 7.3, Albumin 3.5, Globulin 3.8, Lipase 145 02/16/21 02:15: Phosphorus 3.5, Magnesium 2.1 02/16/21 04:40: Urine Color Yellow, Urine Clarity Clear, Urine pH 7.0, Ur Specific [place] 1.010, Urine Protein Negative, Urine Glucose (UA) Normal, Urine Ketones Negative, Urine Occult Blood Negative, Urine Nitrite Negative, Urine Bilirubin Negative, Urine Urobilinogen Normal, Ur Leukocyte Esterase 100 H, Urine RBC 0 SEEN, Urine WBC 0-5 SEEN, Ur Squamous Epith Cells 0-5 SEEN, Urine Bacteria 2+, Urine Mucus 0 SEEN Micro: Microbiology 02/16/21 08:04 Interface Orders SARS-CoV-2 Antigen (Rapid) - Final Radiology Impression Abdomen/Pelvis CT 02/16/21 03:29 IMPRESSION: Enlargement of the renal pelvis bilaterally suggesting bilateral extrarenal pelvis. Right kidney stone measures 5 mm without hydronephrosis. Electronically Signed: Felicia Sotelo MD at 6:19 EST Tel , Service support , Assessment & Plan Assessment/Plan (1) Abdominal pain: PLAN: The differential diagnosis does include anastomotic ulcer. Also could be that she passed this stone from a common bile duct. I will get an MRCP. She should also get an ESR and CRP to evaluate the blood for any inflammation that cannot be seen on CT scan. She will undergo an EGD tomorrow. She was explained alternatives, risk, benefits including not withstanding bleeding, infection, sepsis, perforation, need for emergent . She will have an ASA of 1. Charges/Coding Visit Charges Inpatient E&M: 06340 Init Hosp L2
[2021-02-16 19:24] LABS: Erythrocyte Sedimentation Rate 6 mm/hr (0-30)
--- NOTE | 2021-02-16 20:17 | PCS.PANDOC ---
PANDEMIC DOCUMENTATION INITIATED: Date: 11/24/2020 Time: 190
[2021-02-16 23:40] LABS: CRP < 2.90 mg/L (0.0-3.0); LDH 184 U/L (84-246)
[2021-02-17] VITALS (11 sets, daily range): BP systolic 74–112; BP diastolic 3–67; PULSE 58–81; RESP 15–16; TEMP 36.4–37.2; O2SAT 95–100
--- NOTE | 2021-02-17 | IMM_PTH ---
PATIENT: GERMAN ROBBINS LOC: MS3 U#:[id number] AGE/SX: 40/F ROOM: [facility] [place] RE02/16/[address]: Dr. Pepe Mckenna MD : 1980 BED: 1 DIS: 02/19/2021 SPEC #: [id number] RECD: 02/20/21 09:26 STATUS: KAI MAXI #: [id number] ROLAND: 02/17/21 00:[address]: Ra Biahsaan DEPT: IMMUNOHISTOCHEMISTRY RECD BY: Marzena Márquez ENTERED: 02/20/21 09:27 SP TYPE: IMMUNO OTHR DR: MD Dr. Prem Cristobal MD Dr. Scott Higley, Tissues: Stomach, NOS Procedures: P53 (initial) KI-67 (add) PHYSICIAN & INSTITUTION [place] [address] SPECIMEN INFORMATION: Tissue Source: Anastomosis biopsy Clinical Info: Abdominal pain Specimen Number: [id number] CPT code: 48599, 56756 METHODOLOGY: Deparaffinized sections of prefer/formalin-fixed tissue or PAP/DQ stained slides are incubated with monoclonal/polyclonal antibodies/oligonucleotide probes. Localization is made via biotin free immunoperoxidase method. Appropriate controls are performed and reacted as expected. Results on target cell population are indicated in the following table: RESULTS: ANTIBODY / CLONE RESULT P53 (DO-7) negative Ki-67 (30-9) positive, very low These tests were developed and their performance characteristics determined by [facility]. They may not have been cleared or approved by the U.S. Food and Drug Administration. The FDA has determined that such clearance or approval is not necessary. The above immunohistochemical/dualISH markers are ordered and reviewed by the Pathologist. INTERPRETATION: Anastomosis biopsy: Negative for dysplasia. UBALDO:antonino 02/20/2021
[2021-02-17] MEDS: 0.9% Saline Lock 10 ML Syringe IV ×3 (02:18→11:51)
[2021-02-17] MEDS: Morphine 2 MG/ML Syringe IV ×6 (02:18→22:28)
[2021-02-17] MEDS: 0.9% Normal Saline 1,000 ML 100 ML IV ×2 (05:27→17:17)
[2021-02-17 06:44] LABS: Anion Gap 3 (5-15); BUN 10 mg/dL (7-18); BUN/Creat Ratio 16.5 RATIO (10-20); Calcium,Total 8.4 mg/dL (8.5-10.1); Chloride 109 mmol/L (98-107); Creatinine, Serum 0.61 mg/dL (0.55-1.02); EST Glomerular Filtration Rate 116 mL/min (>60); Est Glom Filt Rate - Afr Amer 141 mL/min (>60); Estimated Creatinine Clearance 120.41 ml/min; Glucose 82 mg/dL (74-106); Potassium 4.2 mmol/L (3.5-5.1); Sodium Level 140 mmol/L (136-145)
[2021-02-17] MEDS: Ondansetron 4 MG/2 ML Vial IV (08:36)
--- NOTE | 2021-02-17 10:48 | MRI_ITS ---
STUDY: MR MRCP WITHOUT CONTRAST REASON FOR EXAM: Female, 40 years old. Epigastric pain, inflammatory pancreatic or CBD stone TECHNIQUE: Standard MRCP technique was utilized. COMPARISON: CT dated 02/16/2021 FINDINGS: Gall Bladder: Gall bladder is surgically absent. Cystic duct: Normal with no demonstrated fixed filling defect. Intrahepatic ducts: Normal visualized intrahepatic ducts with no demonstrated fixed filling defect, dilation or stricture. Common hepatic duct: Normal with no demonstrated fixed filling defect, dilation or stricture. Common bile duct: Normal with no demonstrated fixed filling defect, dilation or stricture. Pancreatic duct: Normal with no demonstrated fixed filling defect, dilation or stricture. There is stable left hydronephrosis. MRI/MRCP Abdomen without Contrast IMPRESSION: Status post cholecystectomy otherwise within normal limits MR Cholangiopancreatography (MRCP). Stable left hydronephrosis. Electronically Signed: Solange Man MD at 13:18 EST Tel , Service support ,
--- NOTE | 2021-02-17 11:48 | NURSING ---
pt to [facility]
--- NOTE | 2021-02-17 12:47 | PN.HOSP_ITS ---
Subjective Subjective The patient was evaluated by GI. Scheduled for EGD in afternoon. MRCP ordered. Patient is still has persistent epigastric pain which is controlled on IV medication. No fever or chills. Objective Data Objective Data Vital Signs: Vital Signs Temp Pulse Resp BP Pulse Ox 99 F 60 16 112/67 100 02/17/21 11:10 02/17/21 11:10 02/17/21 11:10 02/17/21 11:10 02/17/21 11:10 Oxygen Delivery Method Room Air Weight: 177 lb 11.081 oz Body Mass Index (BMI) 27.8 Intake & Output: Intake and Output for Last 24 Hours 02/15/21 02/16/21 02/17/21 23:59 23:59 23:59 Intake Total 2009 1838.33 / 183. Balance 2009. / 1837. Lab / Micro Data Result Diagrams: 02/16/21 02:15 02/17/21 05:42 Labs: Laboratory Results - last 24 hr 02/16/21 02:15: ESR 6 02/16/21 02:15: Lactate Dehydrogenase 184, C-React Prot Ext Range < 2.90 02/17/21 05:42: Sodium 140, Potassium 4.2, Chloride 109 H, Carbon Dioxide 28.0, Anion Gap 3 L, BUN 10, Creatinine 0.61, Estim Creat Clear Calc 120.41, Est GFR (MDRD) Af Amer 141, Est GFR (MDRD) Non-Af 116, BUN/Creatinine Ratio 16.5, Glucose 82, Calcium 8.4 L Micro: Microbiology 02/16/21 04:40 Urine, Clean Catch Urine Culture - Final Mixed Gram Pos & Gram Neg Org 02/16/21 08:04 Interface Orders SARS-CoV-2 Antigen (Rapid) - Final Physical Exam Narrative General: Alert, Oriented x3, Cooperative HEENT: Atraumatic, PERRLA, EOMI, Normocephalic Oral: No Gingival or Mucosal Lesions/ Ulcerations Neck: Supple, No JVD, Negative Carotid Bruits Lungs: Air entry equal in bilateral lung bases. No crepitation/rhonchi Cardiovascular: Regular rate, Regular Rhythm, Normal S1, Normal S2, No murmurs Abdomen: Mild tenderness in epigastrium. Bowel Sounds Present, Soft, Non- Distended : No renal angle tenderness. No suprapubic tenderness. Extremities: No edema, Capillary Refill Less than 3 Seconds Skin: No rashes, No breakdown Musculoskeletal: No Tenderness to Palpation of Joints or Extremities Neurological: Cranial nerves II-XII grossly intact, DTR 2+/4 and Symmetrical, Neuro grossly intact Psych/Mental Status: Normal Affect, Appropriate. Assessment & Plan Assessment/Plan (1) Intractable epigastric abdominal pain: PLAN: 1. Intractable upper abdominal pain probably gastric/anastomotic/marginal ulcer: Patient is being admitted to [facility]. IV PPI every 12 hourly. Keep the n.p.o. for EGD. GI Dr. Amezquita has been consulted from ER physician. IV fluid while n.p.o. 02/17: EGD scheduled. MRCP done. Report pending. Images reviewed. 2. Recent pyelonephritis: Currently she denies burning micturition. UA is negative for pyuria. She also had recent Covid infection. Patient has negative COVID-19 rapid antigen. 3. 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 Recent vaginal hysterectomy and repair of prolapse in November 2020. Prior cholecystectomy. Currently she does not have any complain 4. Anxiety and depression: On Zoloft. VTE prophylaxis: Low to moderate risk risk. BMI is 27.1 kg per square. Bilateral SCDs patient is on observational status but if hospital stay gets prolonged we will put pharmacological prophylaxis. Charges/Coding Visit Charges Inpatient E&M: 96693 Subs Hosp L2
--- NOTE | 2021-02-17 15:03 | NURSING ---
pt to endo
[2021-02-17] MEDS: Lactated Ringers 1,000 ML 100 ML IV (15:25)
--- NOTE | 2021-02-17 16:00 | EGD_PTH ---
PATIENT: GERMAN ROBBINS LOC: [facility]3 U#:[id number] AGE/SX: 40/F [place] [facility] [place]: Dr. Pepe Mckenna MD : 1980 BED: 1 DIS: 02/19/2021 SPEC #: [id number] RECD: 02/17/21 17:04 STATUS: KAI SUAZOTacho #: [id number] ROLAND: 02/17/21 16:[address]: Bryan Amezquita DEPT: SURGICAL PATHOLOGY RECD BY: Moni Elias ENTERED: 02/18/21 09:01 SP TYPE: EGD BIOPSY OTHR DR: MD Dr. Prem Cristobal MD Dr. Scott Higley, Tissues: Stomach, NOS Procedures: Special Stain Group II Surgery Specimen Level IV Alcian Blue/PAS (control) Comments: @ Ordering doctor for SUIV edited from to @ by ERIKA at 02/18/21 142 @ Submitting doctor edited from to @ by RGOOD at 02/18/21 142 HEADER OPERATION: EGD PRE-OP DIAGNOSIS: Abdominal pain TISSUE SUBMITTED: Anastomosis biopsy MICROSCOPIC DIAGNOSIS Anastomosis, biopsy: Fragments of gastric mucosa with chronic inflammation. Focal intestinal metaplasia. No evidence of dysplasia. See comment. AM:antonino 02/19/2021 COMMENT Immunohistochemistry ([id number]) for P53 and Ki-67 will be performed and results will be reported separately. Alcian blue/PAS stain with matched control supports the above diagnosis. MICROSCOPIC DESCRIPTION Slides are reviewed. GROSS DESCRIPTION Received in fixative is one container labeled with the patient's name and designated anastomosis biopsy. The specimen consists of two irregular fragments of light dykes soft tissue that in aggregate measure 0.6 x 0.3 x 0.1 cm. The specimen is totally submitted in one cassette. / SJ:antonino 02/18/21 TC:3 CPT: 77548, 69377
--- NOTE | 2021-02-17 16:31 | OP.EGD_ITS ---
Patient Name: Rossy Freeman Procedure Date: 02/17/2021 3:54 PM Date of : 1980 Age: 40 Procedure: Upper GI endoscopy Indications: Epigastric abdominal pain Providers: Bryan Amezquita DO Medicines: See the Anesthesia note for documentation of the administered medications Patient Profile: This is a 40 year old female. Refer to note in patient chart for documentation of history and physical. Patient has symptoms of acute epigastric abdominal pain. The symptoms first began 01,. Complications: No immediate complications. Procedure: Pre-Anesthesia Assessment: - Prior to the procedure, a History and Physical was performed, and patient medications and allergies were reviewed. The patient is competent. The risks and benefits of the procedure and the sedation options and risks were discussed with the patient. All questions were answered and informed consent was obtained. Patient identification and proposed procedure were verified by the physician in the pre-procedure area. Mental Status Examination: alert and oriented. Airway Examination: normal oropharyngeal airway and neck mobility. Respiratory Examination: clear to auscultation. CV Examination: normal. Prophylactic Antibiotics: The patient does not require prophylactic antibiotics. Prior Anticoagulants: The patient has taken no previous anticoagulant or antiplatelet agents. After reviewing the risks and benefits, the patient was deemed in satisfactory condition to undergo the procedure. The anesthesia plan was to use moderate sedation / analgesia (conscious sedation). Immediately prior to administration of medications, the patient was re-assessed for adequacy to receive sedatives. The heart rate, respiratory rate, oxygen saturations, blood pressure, adequacy of pulmonary ventilation, and response to care were monitored throughout the procedure. The physical status of the patient was re-assessed after the procedure. After obtaining informed consent, the endoscope was passed under direct vision. Throughout the procedure, the patient's blood pressure, pulse, and oxygen saturations were monitored continuously. The Colonoscope was introduced through the mouth, and advanced to the afferent and efferent jejunal loops. The upper GI endoscopy was accomplished without difficulty. The patient tolerated the procedure well. Moderate Sedation: Moderate (conscious) sedation was administered by the endoscopy nurse and supervised by the endoscopist. The patient's oxygen saturation, heart rate, blood pressure and response to care were monitored. Total physician intraservice time was 15 minutes. Scope In: 4:04:05 PM Scope Out: 4:15:38 PM Total Procedure Duration Time 0 hours 11 minutes 33 seconds Findings: The examined esophagus was normal. One non-bleeding linear gastric ulcer with no stigmata of bleeding was found at the anastomosis. The lesion was 3 mm in largest dimension. Biopsies were taken with a cold forceps for histology. Verification of patient identification for the specimen was done. Estimated blood loss was minimal. Impression: - Dexter-en-Y gastrojejunostomy [Gastrojejunal Description]. Biopsied. Recommendation: - [facility] - Resume previous diet. - Continue present medications. - Await pathology results. - Return to GI office in 2 weeks. - Use misoprostol 200 micrograms PO QID for 2 weeks. Procedure Code(s): --- Professional --- 39982, Esophagogastroduodenoscopy, flexible, transoral; with biopsy, single or multiple G0500, Moderate sedation services provided by the same physician or other qualified health care giver performing a gastrointestinal endoscopic service that sedation supports, requiring the presence of an independent trained observer to assist in the monitoring of the patient's level of consciousness and physiological status; initial 15 minutes of intra-service time; patient age 5 years or older (additional time may be reported with 48832, as appropriate) CPT copyright 2017 [employer]. All rights reserved. The codes documented in this report are preliminary and upon filler shredding machine loader review may be revised to meet current compliance requirements. Bryan Amezquita DO 02/17/2021 4:30:54 PM This report has been signed electronically. Number of Addenda: 1 Note Initiated On: 02/17/2021 3:54 PM Addendum Number: 1 Addendum Date: 12/11/2021 6:20:37 AM MAC was used instead of moderate sedation for this patient. Bryan Amezquita DO 12/11/2021 6:20:42 AM This report has been signed electronically.
[2021-02-17] MEDS: Sertraline 100 MG Tablet PO (18:46)
[2021-02-18 02:53] VITALS: BP 94/43; PULSE 59; RESP 16; TEMP 36.8; O2SAT 97
[2021-02-18] MEDS: 0.9% Normal Saline 1,000 ML 100 ML IV ×2 (03:02→12:02)
[2021-02-18] MEDS: Morphine 2 MG/ML Syringe IV ×2 (03:02→08:06)
[2021-02-18 08:13] VITALS: BP 113/65; PULSE 56; RESP 16; TEMP 37.2; O2SAT 100
[2021-02-18] MEDS: Sertraline 100 MG Tablet PO (09:36)
[2021-02-18] MEDS: Acetaminophen 325 MG Tablet 650 MG PO ×2 (12:01→21:22)
[2021-02-18] MEDS: miSOPROStol 200 MCG Tablet PO ×3 (14:11→21:23)
[2021-02-18 14:41] VITALS: BP 93/47; PULSE 72; RESP 16; TEMP 36.9; O2SAT 100
--- NOTE | 2021-02-18 17:46 | EX.PCM.PN.GI ---
Subjective Subjective Patient underwent upper endoscopy for the evaluation of her abdominal pain. She is still having abdominal pain. She is identified as having an anastomotic ulcer. There was no stigmata of bleeding. Objective Data Objective Data Vital Signs: Vital Signs Temp Pulse Resp BP Pulse Ox 98.4 F 72 16 93/47 L 100 02/18/21 14:41 02/18/21 14:41 02/18/21 14:41 02/18/21 14:41 02/18/21 14:41 Oxygen Flow Rate (L/min) 3 Oxygen Delivery Method Room Air Weight: 177 lb 11.081 oz Body Mass Index (BMI) 27.8 Intake & Output: Intake and Output for Last 24 Hours 02/16/21 02/17/21 02/18/21 23:59 23:59 23:59 Intake Total 2009 2493.33 / 2493.33 4058.33 / 4058.33 Balance 2009 2493.33 / 2493.33 4058.33 / 4058.33 Lab / Micro Data Result Diagrams: 02/16/21 02:15 02/17/21 05:42 Micro: Microbiology 02/16/21 04:40 Urine, Clean Catch Urine Culture - Final Mixed Gram Pos & Gram Neg Org 02/16/21 08:04 Interface Orders SARS-CoV-2 Antigen (Rapid) - Final Physical Exam Const alert General Appearance: cooperative Orientation / Consciousness: oriented to person HEENT hearing grossly normal bilaterally Head and Scalp: normal to inspection Face and Sinus: face symmetric Nose: external nose normal Mouth: oral and palatal mucosa normal Eyes conjunctivae normal General Eye: normal appearance of both eyes Neck full ROM General: normal visual inspection Lymph Lymphatic: no lymphadenopathy noted Chest inspection of chest normal and palpation of chest normal Chest: symmetrical chest wall rise Resp normal respiratory effort Effort and Inspection: able to speak in complete sentences Cardio regular rate GI non-distended Percussion: normal to percussion Rectal Exam: deferred Neuro Speech: speech normal Gait (Neuro): normal gait Assessment & Plan Assessment/Plan (1) Abdominal pain: PLAN: I did not see any other etiology to her abdominal pain. There is no sign of pancreatic divisum or pancreatic or bile duct stone. There was no indication of recent pancreatitis. I was not able to look at the E ferret limb of her Dexter-en-Y gastric bypass very well due to the long afferent limb but we did get a good look at most of the small bowel. Continue current medication regimen.
--- NOTE | 2021-02-18 18:02 | PN.HOSP_ITS ---
Subjective Subjective Doing well, pain is controlled at a level of 5 maximum. She is okay with discontinuing her morphine and see how she does Objective Data Objective Data Vital Signs: Vital Signs Temp Pulse Resp BP Pulse Ox 98.4 F 72 16 93/47 L 100 02/18/21 14:41 02/18/21 14:41 02/18/21 14:41 02/18/21 14:41 02/18/21 14:41 Oxygen Flow Rate (L/min) 3 Oxygen Delivery Method Room Air Weight: 177 lb 11.081 oz Body Mass Index (BMI) 27.8 Intake & Output: Intake and Output for Last 24 Hours 02/17/21 02/18/21 02/19/21 03:59 03:59 03:59 Intake Total 2300 / 2300 3468.33 / 3468.33 2783.33 / 2783.33 Balance 2300 / 2300 3468.33 / 3468.33 2783.33 / 2783.33 Lab / Micro Data Result Diagrams: 02/16/21 02:15 02/17/21 05:42 Micro: Microbiology 02/16/21 04:40 Urine, Clean Catch Urine Culture - Final Mixed Gram Pos & Gram Neg Org 02/16/21 08:04 Interface Orders SARS-CoV-2 Antigen (Rapid) - Final Physical Exam Const alert, oriented x3 and no apparent distress General Appearance: cooperative HEENT normocephalic and moist oral mucous membranes Eyes PERRL, EOMs intact bilaterally and conjunctivae normal Neck supple and no JVD Resp normal respiratory effort, no retractions, no use of accessory muscles and clear to auscultation bilaterally Auscultation: Negative for crackles, rales, rhonchi or wheezes Cardio regular rate, regular rhythm, S1 normal heart sound, S2 normal heart sound and no murmurs GI soft to palpation and non-distended; Negative for hepatosplenomegaly Palpation: tender epigastric (Mild) Extremity no clubbing, cyanosis or edema Skin no rashes or lesions noted Neuro no focal motor deficits and no sensory deficits noted Psych affect normal Appearance: appropriate Assessment & Plan Assessment/Plan (1) Intractable epigastric abdominal pain: PLAN: 1. Intractable upper abdominal pain probably gastric/anastomotic/marginal ulcer: Patient is being admitted to [facility]. IV PPI every 12 hourly. Keep the n.p.o. for EGD. GI Dr. Amezquita has been consulted from ER physician. IV fluid while n.p.o. 02/17: EGD scheduled. MRCP done. Report pending. Images reviewed. 02/18/2021: 3 mm linear gastritis at anastomosis. We will continue with m isoprostol, advance her to a regular diet which she is tolerating without any increased pain. Will reevaluate her in the morning 2. Recent pyelonephritis: Currently she denies burning micturition. UA is negative for pyuria. She also had recent Covid infection. Patient has negative COVID-19 rapid antigen. 3. 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 Recent vaginal hysterectomy and repair of prolapse in November 2020. Prior cholecystectomy. Currently she does not have any complain 4. Anxiety and depression: On Zoloft. DVT: SCDs Charges/Coding Visit Charges OBSV E&M: 74587 Subsequent observation care L2
[2021-02-18] MEDS: Ondansetron 4 MG/2 ML Vial IV (19:34)
[2021-02-18 21:18] VITALS: BP 105/62; PULSE 65; RESP 18; TEMP 36.8; O2SAT 99
[2021-02-18] MEDS: Mag Hydrox/Al Hydrox/Simeth 30 ML UDC PO (21:56)
[2021-02-19 02:39] VITALS: BP 97/36; PULSE 54; RESP 18; TEMP 36.5; O2SAT 98
[2021-02-19 09:09] VITALS: BP 115/65; PULSE 72; RESP 16; TEMP 36.9; O2SAT 100
[2021-02-19] MEDS: miSOPROStol 200 MCG Tablet PO ×2 (09:11→11:03)
[2021-02-19] MEDS: Sertraline 100 MG Tablet PO (09:11)
--- NOTE | 2021-02-19 10:12 | PCM.DC ---
Discharge Instructions Diet Discharge Diet: No restrictions Activity Discharge Activity: Return to Normal Activity Dressing / Incision Call your doctor if you observe: Fever of 101 or Higher, Shortness of breath, Dizziness, Fainting spells, Swelling in the ankles, Chest pain and Increased palpitations (irregular heartbeat) Follow Up Care Test Results: Test results from this visit will be discussed in further detail at your follow-up appointment, if applicable. Discharge Plan Admission Admit Date/Time: 02/16/21 08:29 Attending Provider: Pepe Mckenna Primary Care Provider: Dread Lira Discharge Orders/Prescriptions Prescriptions: New misoprostol 200 mcg Tablet 200 mcg PO Q6H 14 Days Qty: 56 RF: 0 Continued sertraline 100 MG tablet 100 mg PO DAILY RF: 0 multivitamin Tablet 1 tab PO DAILY RF: 0 Referrals / Follow Up: Bryan Amezquita DO [STAFF PHYSICIAN] - Within 2 Weeks Dread Lira DO [Primary Care Provider] - Within 1 Week Disposition Disposition (needs filled in before D/C Order can be placed): Home, Self Care
[2021-02-19 13:38] VITALS: PULSE 75; RESP 16; TEMP 37.1; O2SAT 100
--- NOTE | 2021-02-19 14:20 | DS.PCM_ITS ---
Providers Date of Admission: 02/16/21 Primary Care Physician: Dr. Dread Lira, DO Consultations 02/16/21 08:48 Consult: Gastroenterology Routine Consulting Provider: [facility] Reason for Consult: Upper abdominal pain EMERGENT Consult: No MD Notified: Yes Date Notified: 02/16/21 Time Notified: 08:00 Method of Notification: Verbal Comments:: Notified by Dr. Land Reason For Visit: EPIGASTRIC PAIN Diagnosis Discharge Diagnosis (1) Intractable epigastric abdominal pain: Status: Acute Code(s): R10.13 - Epigastric pain Medications at Discharge Home Medications sertraline 100 mg PO DAILY 04/07/14 multivitamin 1 tab PO DAILY 02/16/21 misoprostol 200 mcg PO Q6H 14 Days #56 tab 02/19/21 Hospital Course Operations None Procedures EGD Summary of Care Provided Minutes Spent on Discharge: 35 Hospital Course: Per HPI: GERMAN ROBBINS, is a 40 F with history of morbid obesity status post Dexter-en-Y gastric bypass about 2 to 3 years ago without severe complications came to ER with upper abdominal pain that started about 1 2 PM yesterday while patient was at work. This progressed to severe, sharp, stabbing in nature with burping and bloating sensation. Patient states he had history of ulcer prior to gastric bypass surgery which resolved after Carafate treatment. She denies history of H. pylori. Patient denies vomiting, alteration in bowel habit, he matemesis, melena or hematochezia. She also has recent history of vaginal hysterectomy in November 2020 and had postoperative kidney infection/pyelonephritis probably due to Reyes catheter. She has history of cholecystectomy and ureteral stent. In ED, she was given GI cocktail. Abdomen pelvis CT in the ER shows enlargement of bilateral renal pelvis suggesting bilateral extrarenal pelvis. Right kidney stone 5 mm without hydronephrosis. Hospital Course: 1. Intractable upper abdominal pain probably gastric/anastomotic/marginal ulcer: Patient is being admitted to [facility]. IV PPI every 12 hourly. Keep the n.p.o. for EGD. GI Dr. Amezquita has been consulted from ER physician. IV fluid while n.p.o. 02/17: EGD scheduled. MRCP done. Report pending. Images reviewed. 02/18/2021: 3 mm linear gastritis at anastomosis. We will continue with misoprostol, advance her to a regular diet which she is tolerating without any increased pain. Will reevaluate her in the morning 02/19/2021: Her pain is stable. She is tolerating a diet and would like to go home today. She will follow up with gastroenterology in 2 weeks and will continue misoprostol for 2 weeks. I discussed with her the plan for discharge and she expressed understanding of the risk benefits of going home and would like to go home today. 2. Recent pyelonephritis: Currently she denies burning micturition. UA is negative for pyuria. She also had recent Covid infection. Patient has negative COVID-19 rapid antigen. 3. 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 Recent vaginal hysterectomy and repair of prolapse in November 2020. Prior cholecystec tyson. Currently she does not have any complain 4. Anxiety and depression: On Zoloft. Physical Exam Const alert, oriented x3 and no apparent distress General Appearance: cooperative HEENT normocephalic and moist oral mucous membranes Eyes PERRL, EOMs intact bilaterally and conjunctivae normal Neck supple and no JVD Resp normal respiratory effort, no retractions, no use of accessory muscles and clear to auscultation bilaterally Auscultation: Negative for crackles, rales, rhonchi or wheezes Cardio regular rate, regular rhythm, S1 normal heart sound, S2 normal heart sound and no murmurs GI soft to palpation and non-distended; Negative for hepatosplenomegaly Palpation: tender epigastric (Mild) Extremity no clubbing, cyanosis or edema Skin no rashes or lesions noted Neuro no focal motor deficits and no sensory deficits noted Psych affect normal Appearance: appropriate Weight / BMI Weight Weight: 177 lb 11.081 oz Body Mass Index (BMI) 27.8 ABG / Lab / Microbiology Data Result Diagrams: 02/16/21 02:15 02/17/21 05:42 Microbiology: Microbiology 02/16/21 04:40 Urine, Clean Catch Urine Culture - Final Mixed Gram Pos & Gram Neg Org 02/16/21 08:04 Interface Orders SARS-CoV-2 Antigen (Rapid) - Final D/C Instructions Discharge Diet: No restrictions Call your doctor if you observe: Fever of 101 or Higher, Shortness of breath, Dizziness, Fainting spells, Swelling in the ankles, Chest pain and Increased palpitations (irregular heartbeat) Meaningful Use Info Meaningful Use Diagnoses (Choose all that apply): None applicable Discharge Plan Admission Admit Date/Time: 02/16/21 08:29 Attending Provider: Pepe Mckenna Primary Care Provider: Dread Lira Discharge Orders/Prescriptions Prescriptions: New misoprostol 200 mcg Tablet 200 mcg PO Q6H 14 Days Qty: 56 RF: 0 Continued sertraline 100 MG tablet 100 mg PO DAILY RF: 0 multivitamin Tablet 1 tab PO DAILY RF: 0 Referrals / Follow Up: Bryan Amezquita DO [STAFF PHYSICIAN] - Within 2 Weeks Dread Lira DO [Primary Care Provider] - Within 1 Week Disposition Disposition (needs filled in before D/C Order can be placed): Home, Self Care Charges/Coding Visit Charges OBSV E&M: 80921 Observation care discharge
== END 2021-02-19 13:44 | disposition home or self-care (01) ==
LOC: ED 03:24 → MS3 08:04
PROVIDERS: Internal Medicine Gastroenterology; Admitting Provider Internal Medicine; Emergency Provider Emergency Medicine; PCP Family Medicine; Visit Provider Family Medicine
PROC: (CPT 43239; principal; 2021-02-17 15:55)
DX: K25.9 Gastric ulcer, unspecified as acute or chronic, without hemorrhage or perforation (principal); R10.13 Epigastric pain; N13.2 Hydronephrosis with renal and ureteral calculous obstruction; F32.A Depression, unspecified; F41.9 Anxiety disorder, unspecified; E86.0 Dehydration; Z79.899 Other long term (current) drug therapy; Z98.84 Bariatric surgery status; Z86.16 Personal history of COVID-19
CPT/HCPCS: 43239; 36415; 74177; 74181; 80048; 80076; 81001; 83615; 83690; 83735; 84100; 85025; 85652; 86140; 87086; 87088; 87426; 88305; 88313; 88341; 88342; 96361; 96374; 96375; 96376; 99218; 99283; J7030; J7120; Q9967; A4216; G0378; J2405; J3490